=== PATIENT | male | born 1965 | race Caucasian/White ===

== ENCOUNTER 2018-07-25 16:12 | Emergency (ER) | payer SELFPAY ==
[2018-07-25] MEDS ORDERED: IPRATRPIUM/ALBUTEROL 0.5/2.5MG 3 ML NEBU. ONE (16:15)
--- NOTE | 2018-07-25 16:20 | PHYS DOC ---
Past History Past Medical History: COPD Smoking: Cigarettes Alcohol Use: None Drug Use: Marijuana Adult General Chief Complaint Chief Complaint: SHORTNESS OF BREATH HPI HPI Patient is a 52 year old male resident of [facility] with history of COPD and currently smoking brought in by EMS because of shortness of breath and hypoxia. Patient complaining of shortness of breath and cough and chest soreness since yesterday. EMS reported that patient had O2 sat of 70s that did not improve to more than 85% with starting oxygen and DuoNeb. Patient brought in by EMS with moderate respiratory distress and O2 sat of 92% on nonrebreather. History of limited because of medical condition. Review of Systems Review of Systems Constitutional: Denies fever or chills [] Eyes: Denies change in visual acuity, redness, or eye pain [] HENT: Denies nasal congestion or sore throat [] Respiratory: Reports cough and shortness of breath Cardiovascular: No additional information not addressed in HPI [] GI: Denies abdominal pain, nausea, vomiting, bloody stools or diarrhea [] : Denies dysuria or hematuria [] Musculoskeletal: Denies back pain or joint pain [] Integument: Denies rash or skin lesions [] Neurologic: Denies headache, focal weakness or sensory changes [] Endocrine: Denies polyuria or polydipsia [] All other systems were reviewed and found to be within normal limits, except as documented in this note. Current Medications Current Medications Current Medications Medications (Trade) Dose Ordered Sig/Cristi Start Time Stop Time Status Last Admin Dose Admin Albuterol/ Ipratropium (Duoneb) 3 ml STK-MED ONCE 07/25/18 16:15 07/25/18 16:17 DC Physical Exam Physical Exam Constitutional: Well nourished, moderate distress, non-toxic appearance. [] HENT: Normocephalic, atraumatic, oropharynx dry, no oral exudates, nose normal. [] Eyes: PERRLA, EOMI, conjunctiva normal, no discharge. [] Neck: Normal range of motion, no tenderness, supple, no stridor. [] Cardiovascular: Tachycardia, no murmur [] Lungs & Thorax: Moderate respiratory distress with intercostal retracBilateral breath sounds clear to auscultation [] Abdomen: Bowel sounds normal, soft, no tenderness, no masses, no pulsatile masses. [] Skin: Warm, dry, no erythema, no rash. [] Back: No tenderness, no CVA tenderness. [] Extremities: No tenderness, no cyanosis, no clubbing, ROM intact, no edema. [] Neurologic: Alert and oriented X 3, moves all extremities EKG EKG EKG interpreted by me. EKG at 1640 showed sinus tachycardia at rate of 142, nonspecific intraventricular block, low QRS voltage, poor R-wave progress in anteroseptal leads, no acute ST and T-wave abnormalities. Radiology/Procedures Radiology/Procedures [address] [address] IMAGING REPORT Signed PATIENT: MIRIAM CUNNINGHAM ACCOUNT: [id number] : 1965 LOCATION: ER AGE: 52 SEX: M EXAM STATUS: PRE ER ORD. PHYSICIAN: MARBIN RAHMAN MD REASON: shortness of breath PROCEDURE: PORTABLE CHEST 1V Portable chest, 07/25/2017: HISTORY: Shortness of breath, COPD, asthma No previous chest radiographs are available at this time for comparison purposes. The heart is within normal limits in size. There are mildly prominent interstitial markings in the lungs. No consolidating infiltrate is seen. There is no evidence of pleural fluid. IMPRESSION: Mild interstitial prominence in the lungs raising the possibility of early interstitial edema. Other possibilities include mild fibrosis or atypical pneumonia. Electronically signed by: Manpreet Powell MD (07/25/2018 4:42 PM) [facility] DICTATED AND SIGNED BY: MANPREET POWELL MD DATE: 07/25/18 5512 CC: MARBIN RAHMAN MD ~ Course & Med Decision Making Course & Med Decision Making Pertinent Labs and Imaging studies reviewed. (See chart for details) Evaluation of patient in ER showed 52-year-old male patient brought in by EMS because of respiratory distress and hypoxia. Patient had O2 sat of 92% on nonrebreather and after obtaining ABG was started on BiPAP. Patient had leukocytosis and tachycardia and elevation of lactic acid at 12 without attention. Patient treated with 30Ml/KG of normal saline and antibiotic. Dr. Klein was informed at 1732 and he commented to transfer patient to [facility] and accepted transfer to [facility]. Dragon Disclaimer Dragon Disclaimer This electronic medical record was generated, in whole or in part, using a voice recognition dictation system. Departure Departure: Impression: Primary Impression: Severe sepsis Additional Impressions: Atypical pneumonia Hypoxia Acute respiratory distress Acute respiratory acidosis Hypercapnia Hypokalemia Renal insufficiency CHF (congestive heart failure) Elevated liver function tests Disposition: 02 XFER [facility] ([facility] at 1732) Admitting Physician: Maximilian Klein (accepted transfer to [facility] at 1732) Condition: GUARDED Critical Care Time Critical care time was 90 minutes exclusive of procedures. Problem Qualifiers MARBIN RAHMAN MD Jul 25, 2018 16:20
[2018-07-25] MEDS ORDERED: IPRATRPIUM/ALBUTEROL 0.5/2.5MG 3 ML NEBU. NEB ONE (16:30)
[2018-07-25] MEDS ORDERED: methylPREDNISolone SOD SUCC PF 125 MG/2 ML VIAL. IV ONE (16:30)
[2018-07-25] MEDS ORDERED: IV NORMAL SALINE 1,000ML 1,000 ML IV SCH (16:30)
--- NOTE | 2018-07-25 16:46 | RAD ---
Portable chest, 07/25/2017: HISTORY: Shortness of breath, COPD, asthma No previous chest radiographs are available at this time for comparison purposes. The heart is within normal limits in size. There are mildly prominent interstitial markings in the lungs. No consolidating infiltrate is seen. There is no evidence of pleural fluid. IMPRESSION: Mild interstitial prominence in the lungs raising the possibility of early interstitial edema. Other possibilities include mild fibrosis or atypical pneumonia. Electronically signed by: Manpreet Powell MD (07/25/2018 4:42 PM) [facility]
[2018-07-25 16:51] LABS: BASO # 0.1 x10^3/uL (0.0-0.2); BASO % 1 % (0-3); EOS # 0.2 x10^3/uL (0.0-0.7); EOS % 1 % (0-3); HEMATOCRIT 42.4 % (39.0-53.0); HEMOGLOBIN 13.3 g/dL (13.0-17.5); LYMPH % 29 % (24-48); MEAN CORPUSCULAR HEMOGLOBIN 31 pg (25-35); MEAN CORPUSCULAR HGB CONC 31 g/dL (31-37); MEAN CORPUSCULAR VOLUME 97 fL (79-100); MONO # 1.1 x10^3/uL (0.0-1.1); MONO % 7 % (0-9); NEUT # 10.6 x10^3uL (1.8-7.7); NEUT % 62 % (31-73); PLATELET COUNT 225 x10^3/uL (140-400); RED BLOOD COUNT 4.36 x10^6/uL (4.30-5.70); RED CELL DISTRIBUTION WIDTH 14.8 % (11.5-14.5)
[2018-07-25] MEDS ORDERED: AZITHROMYCIN 500 MG in IV NORMAL SALINE 250ML 250 ML IV ONE (17:00)
[2018-07-25] MEDS ORDERED: LORazepam 2 MG/ML VIAL IV ONE (17:00)
[2018-07-25 17:08] LABS: BGAS PH 6.95 (7.35-7.46)
[2018-07-25 17:10] LABS: ALBUMIN 3.8 g/dL (3.4-5.0); ALBUMIN/GLOBULIN RATIO 1.3 (1.0-1.7); CALCIUM 8.4 mg/dL (8.5-10.1); CREATININE 1.5 mg/dL (0.7-1.3); POTASSIUM 3.3 mmol/L (3.5-5.1); TOTAL PROTEIN 6.8 g/dL (6.4-8.2)
[2018-07-25] MEDS ORDERED: IV NORMAL SALINE 1,000ML 1,000 ML IV ONE (17:30)
[2018-07-25] MEDS ORDERED: VANCOMYCIN 1 GM in IV NORMAL SALINE 250ML 250 ML IV ONE (17:30)
[2018-07-25] MEDS ORDERED: IV NORMAL SALINE 500ML 500 ML IV ONE (17:30)
[2018-07-25] MEDS ORDERED: IV NORMAL SALINE 50ML 50 ML ONE (17:32)
[2018-07-25] MEDS ORDERED: cefTRIAXone SODIUM 1 GM VIAL IV ONE (17:32)
[2018-07-25 17:38] LABS: % BANDS 1 % (0-9); % BASOS 1 % (0-3); % EOS 1 % (0-5); % LYMPHS 32 % (24-48); % MONOS 3 % (0-10); % SEGS 59 % (35-66); PLT ESTIMATE ADEQUATE (ADEQUATE); TOXIC GRANULATION PRESENT
[2018-07-25 17:39] LABS: ANISOCYTOSIS SLIGHT; OVALOCYTES FEW
[2018-07-25] MEDS ORDERED: IV NORMAL SALINE 250ML 250 ML ONE ×2 (17:42→18:23)
[2018-07-25] MEDS ORDERED: AZITHROMYCIN 500 MG VIAL. IV ONE (17:43)
[2018-07-25] MEDS ORDERED: VANCOMYCIN 2 GM in IV NORMAL SALINE 500ML 500 ML IV ONE (17:45)
[2018-07-25] MEDS ORDERED: VANCOMYCIN 1 GM VIAL. ONE (18:11)
[2018-07-25] MEDS ORDERED: IV NORMAL SALINE 500ML 500 ML ONE (18:11)
[2018-07-25 18:19] LABS: BGAS PH 7.37 (7.35-7.46)
[2018-07-25 18:37] LABS: INFLUENZA A PATIENT NEGATIVE (NEGATIVE); INFLUENZA B PATIENT NEGATIVE (NEGATIVE)
[2018-07-25 19:20] VITALS: BP 115/81
--- NOTE | 2018-07-25 20:58 | EKG ---
[address] [address] Test Date: 2018-07-25 Test Time: 16:40:33 Pat Name: MIRIAM CUNNINGHAM Department: Room: Gender: M [employer] Teacher: ASHISH : 1965 Requested By: MARBIN RAHMAN Order Number: [id number] Reading MD: Shahram Yu Measurements Intervals [place] Rate: 143 P: CO: QRS: 14 QRSD: 146 T: 137 QT: 308 QTc: 481 Interpretive Statements ATRIAL FIBRILLATION LOW LIMB LEAD VOLTAGE NON SPECIFIC INTRAVENTRICULAR BLOCK ABNORMAL ECG Electronically Signed On 07-28-2018 17:20:43 PINMAKER by Shahram uY
== END 2018-07-25 19:50 | disposition short-term general hospital (02) ==
LOC: EEVIPCON 16:12 → ER 16:12
DX: R65.20 Severe sepsis without septic shock (principal); J18.8 Other pneumonia, unspecified organism; R09.02 Hypoxemia; R06.03 Acute respiratory distress; E87.2 Acidosis; R06.89 Other abnormalities of breathing; E87.6 Hypokalemia; N28.9 Disorder of kidney and ureter, unspecified; I50.9 Heart failure, unspecified; R79.89 Other specified abnormal findings of blood chemistry; J44.9 Chronic obstructive pulmonary disease, unspecified; F17.210 Nicotine dependence, cigarettes, uncomplicated
CPT/HCPCS: 36415; 71045; 80053; 82550; 82803; 82947; 83605; 83880; 84484; 85007; 85025; 87040; 87804; 93005; 94640; 96365; 96366; 96368; 96375; 99291; 99292; J0456; J0696; J2060; J2930; J3370; J7040; J7050; J7030